=== PATIENT | female | born 1960 | race Hispanic/Latino ===

== ENCOUNTER 2020-03-12 10:32 | Outpatient (CLI) | payer OTHER ==
--- NOTE | 2020-03-12 12:09 | Ultrasound Report ---
ULTRASOUND PELVIC COMPLETE ULTRASOUND TRANSVAGINAL HISTORY: Pelvic and perineal pain TECHNIQUE: Transabdominal and transvaginal ultrasound imaging with color Doppler interrogation. COMPARISON: None. FINDINGS: The uterus and ovaries are not identified consistent with history of total hysterectomy. Images throu gh the bladder are unremarkable. No pelvic cyst, mass or fluid collection is identified. IMPRESSION: Total hysterectomy. Otherwise, unremarkable exam. No acute abnormality is detected. Signer Name: Shiva Jerome Jr, MD Signed: 03/12/2020 12:04 PM Workstation Name: [id number]
== END 2020-03-12 10:33 | disposition home or self-care (01) ==
LOC: SPVWC 10:32
PROVIDERS: ATTEND Family Medicine
DX: R10.2 Pelvic and perineal pain (principal)
CPT/HCPCS: 76830; 76856